=== PATIENT | female | born 1975 | race Caucasian/White ===

== ENCOUNTER 2019-01-17 09:54 | Emergency (ER) | payer OTHER, SELFPAY ==
[2019-01-17 10:04] VITALS: BP 135/93; PULSE 99; RESP 20; TEMP 36.7; O2SAT 98
--- NOTE | 2019-01-17 10:17 | ED.URI ---
HPI - URI/Sore Throat General Chief Complaint: Upper Respiratory Symptoms Stated Complaint: Coughing, fever, aching Time Seen by Provider: 01/17/19 10:17 Source: patient Mode of arrival: ambulatory Limitations: no limitations History of Present Illness HPI Narrative: Patient is a 43-year-old female. She is a smoker. She is here for 3-4 days of a dry cough. No fevers. Has a nonproductive cough. Has no underlying lung pathology prior to this. Has not tried anything for symptoms prior to arrival. Does have little bit of sore throat but she attributes this to the coughing. She states she is here today because last night she had trouble sleeping secondary to the cough Related Data Home Medications Medication Instructions Recorded Confirmed [FAT PILL] #0 04/30/16 Previous Rx's Medication Instructions Recorded naproxen [Naprosyn] 500 mg PO BID #60 tab 04/30/16 prednisone 20 mg PO SEE INSTRUCTIONS #15 tab 04/30/16 sulfamethoxazole-trimethoprim 1 tab PO BID #12 tab 10/01/17 benzonatate [Tessalon Perles] 100 mg PO BID-TID PRN #20 cap 01/17/19 loratadine [Claritin] 10 mg PO DAILY PRN #30 tab 01/17/19 Allergies Allergy/AdvReac Type Severity Reaction Status Date / Time venom-honey bee Allergy Severe Unverified 12/22/17 12:00 [bee venom (honey bee)] amoxicillin Allergy Unknown Unverified 12/22/17 12:00 codeine Allergy Unknown Unverified 12/22/17 12:00 Review of Systems Constitutional Denies fever(s) and Denies headache(s) ENT Ears, Nose, Mouth, and Throat: Denies vertigo, Denies dizziness, Denies headache(s) and Reports sore throat Cardiovascular Denies chest pain, Denies edema, Denies palpitations and Denies dyspnea Respiratory Reports cough and Denies dyspnea Gastrointestinal Gastrointestinal: Denies abdominal pain, Denies nausea and Denies vomiting Musculoskeletal Denies myalgias and Denies arthralgias Integumentary/Breasts Denies rash Neurologic Denies vertigo, Denies dizziness and Denies headache(s) Endocrine Denies palpitations Hematologic/Lymphatic Denies easy bleeding and Denies easy bruising [facility] Medical History Healthy adult (Acute) Social History Smoking Status: Current every day smoker Social History Smoking Status: Current every day smoker Exam Initial Vital Signs Initial Vital Signs: Vital Signs Temperature 98.0 F 01/17/19 10:04 Pulse Rate 99 H 01/17/19 10:04 Respiratory Rate 20 01/17/19 10:04 Blood Pressure 135/93 H 01/17/19 10:04 Pulse Oximetry 98 01/17/19 10:04 Const General: cooperative, healthy appearing, comfortable, well developed, well groomed and No acute distress Orientation: alert, awake and oriented x3 HENMT Head: normal to inspection Ears: hearing grossly normal bilaterally and TM's normal bilaterally Nose: external nose normal Face and sinus: normal facial exam Mouth: oral mucosae normal Throat: posterior oropharynx normal Resp Effort & Inspection: normal respiratory effort Auscultation: clear to auscultation bilaterally Cardio Rate: regular rate Rhythm: regular rhythm Pulses: radial pulses present Skin Lesions: no lesions Rashes: no rashes Neuro General: alert, awake and oriented x3 Cognition: normal cognition Speech: speech normal Extrem General: normal to inspection and capillary refill normal Psych Appearance: grossly normal and well kempt Course Vital Signs - 8 hr 01/17/19 10:04 Temperature 98.0 F Pulse Rate 99 H Respiratory Rate 20 Blood Pressure 135/93 H Pulse Oximetry 98 MDM - URI/Sore Throat MDM Narrative Medical decision making narrative: Patient has a clear lung exam. The rest of her throat and ear exam is unremarkable as well. No indication for antibiotics. Will send home with a prescription for Claritin and Tessalon Perles. She was given expectations that these medications may not take her symptoms completely away. She was instructed to follow up with her primary doctor. She expressed understanding and agreement plan. Discharge Plan Departure Patient Disposition: Home Clinical Impression: Cough Instructions: Cough (Alternative Therapy), Cough Activity Restrictions/Additional Instructions: Take the medications that you were given a prescription for today as directed. Contact your primary care doctor for a follow-up. Return to the emergency department for any new symptoms Prescriptions: New benzonatate [Tessalon Perles] 100 mg capsule 100 mg PO BID-TID PRN (Reason: cough) Qty: 20 RF: 0 loratadine [Claritin] 10 mg tablet 10 mg PO DAILY PRN (Reason: allergy symptoms) Qty: 30 RF: 0 No Action [FAT PILL] Qty: 0 RF: 0 prednisone 20 MG tablet 20 mg PO SEE INSTRUCTIONS Qty: 15 RF: 0 naproxen [Naprosyn] 500 MG tablet 500 mg PO BID Qty: 60 RF: 0 sulfamethoxazole-trimethoprim 800 MG/160 MG tablet 1 tab PO BID Qty: 12 RF: 0
[2019-01-17 11:07] VITALS: BP 123/72; PULSE 91; RESP 15; O2SAT 99
== END 2019-01-17 11:08 | disposition home or self-care (01) ==
PROVIDERS: Emergency Provider Emergency Medicine
DX: R05 Cough (principal)
CPT/HCPCS: 99282; 99283

== ENCOUNTER 2021-10-27 14:27 | Emergency (ER) | payer OTHER, MEDICAID, SELFPAY ==
[2021-10-27] VITALS (15 sets, daily range): BP systolic 104–155; BP diastolic 60–86; PULSE 64–89; RESP 14–43; TEMP 36.4; O2SAT 97–99; BMI 34.0
--- NOTE | 2021-10-27 14:51 | DI.RAD.S_ITS ---
PROCEDURE: XR CHEST 1V INDICATIONS: chest pain TECHNIQUE: One view of the chest was acquired. COMPARISON: None. FINDINGS: Surgical changes and devices: Surgical clips noted in the thyroid fossa Lungs and pleura: Lungs are clear. No pleural effusions or pneumothorax. Mediastinum: Mediastinal contours appear normal. Heart size is normal. Bones and chest wall: No suspicious bony lesions. Overlying soft tissues appear unremarkable. IMPRESSION: No acute cardiopulmonary findings Approved by: Stoney Hernandez M.D. on 10/27/2021 at 14:57
[2021-10-27 15:25] LABS: Add Manual Diff / Slide Review NO; Basophils Absolute Auto 100 /uL (0-100); Basophils Percent Auto 0.9 % (0-2); Eosinophils Absolute Auto 100 /uL (0-450); Hematocrit 40.8 % (36-46); Hemoglobin 13.7 g/dL (12.0-16.0); Lymphocytes Absolute Auto 3600 /uL (1100-4500); Lymphocytes Percent Auto 43.4 % (25-40); Mean Corpuscular HGB Conc 33.5 % (30-36); Mean Corpuscular Hemoglobin 29.8 PG (26-34); Mean Corpuscular Volume 89.1 fL (80-100); Monocytes Absolute Auto 600 /uL (0-900); Monocytes Percent Auto 6.7 % (3-14); Neutrophils Absolute Auto 4000 /uL (1500-7000); Platelet Count 270 X10^3/uL (150-400); Red Blood Cell Count 4.58 X10^6/uL (4.0-5.2); Red Cell Distribution Width 13.4 % (11.6-14.8); White Blood Cell Count 8.2 X10^3/uL (4.5-11.0)
[2021-10-27 15:26] LABS: Alanine Aminotransferase 33 IU/L (<35); Albumin 4.2 g/dL (3.5-5.0); Albumin Globulin Ratio 1.4 (1.0-2.8); Alkaline Phosphatase 66 U/L (38-126); Aspartate Aminotransferase 31 IU/L (14-36); BUN Creatinine Ratio 21.3 (6-22); Bilirubin Total 0.4 mg/dL (0.2-1.3); Blood Urea Nitrogen 16 mg/dL (7-17); Calcium 9.4 mg/dL (8.4-10.2); Carbon Dioxide 24 mmol/L (22-32); Chloride 110 mmol/L (98-107); Creatine Kinase 77 U/L (30-135); Estimated Glomerular Filt Rate > 60.0 mL/min (>60); Glucose 109 mg/dL (70-100); HEMOLYSIS < 15 (0-50); Lipase 122 U/L (23-300); Magnesium 1.8 mg/dL (1.6-2.3); Potassium 3.9 mmol/L (3.4-5.1); Sodium 138 mmol/L (137-145); Total Protein 7.2 g/dL (6.3-8.2)
[2021-10-27 15:36] LABS: Troponin I < 0.012 ng/mL (0.01-0.034)
--- NOTE | 2021-10-27 18:28 | ED.CHESTPAIN ---
HPI - Chest Pain General Chief Complaint: Chest Pain Stated Complaint: Left Sided Shoulder Pain/SOB/Chest Pain Time Seen by Provider: 10/27/21 18:23 Source: patient Mode of arrival: Ambulatory Limitations: no limitations Limitations: no limitations History of Present Illness HPI narrative: This is a 45-year-old female comes emergency department with complaint of left-sided chest pain that she woke up at this morning. She states she turned and took a big breath and had immediate increase in pain. It has been constant we throughout the day but increasing. If she has very still and breathes very shallow and does not twist the wrong way she does not have pain. She describes as being behind her left breast and radiating towards her back. Pleuritic. She has not had similar in the past. She denies any cold, no fevers or chills. No cold cough or congestion. She has had nausea but no vomiting. No diarrhea constipation or rash. Patient has had a prior thyroidectomy, she is on antidepressant, levothyroxine and Xanax as needed as well as Adderall. She is not anticoagulated. She has a history of ovarian cancer in 2003 with a total hysterectomy appy in several lymph nodes removed. She had a carotid dissection at age 23 and was on Coumadin for 2 years but was stopped by her physicians. She smokes tobacco daily, no alcohol, occasional THC but no other illicit. Related Data Home Medications Medication Instructions Recorded Confirmed [FAT PILL] #0 04/30/16 dextroamphetamine-amphetamine 10 01/17/19 mg tablet levothyroxine 175 mcg tablet 175 mcg PO DAILY 01/17/19 01/17/19 Previous Rx's Medication Instructions Recorded naproxen 500 mg tablet (Naprosyn) 500 mg PO BID #60 tab 04/30/16 prednisone 20 mg tablet 20 mg PO SEE INSTRUCTIONS #15 tab 04/30/16 sulfamethoxazole 800 1 tab PO BID #12 tab 10/01/17 mg-trimethoprim 160 mg tablet benzonatate 100 mg capsule 100 mg PO BID-TID PRN #20 cap 01/17/19 (Tessalon Perles) loratadine 10 mg tablet (Claritin) 10 mg PO DAILY PRN #30 tab 01/17/19 ibuprofen 800 mg tablet 800 mg PO Q8H PRN #21 tab 10/28/21 methylprednisolone 4 mg tablets in See Rx Instructions .ROUTE 10/28/21 a dose pack (Medrol (Ryan)) .COMPLEX #21 ea Allergies Allergy/AdvReac Type Severity Reaction Status Date / Time amoxicillin Allergy Unknown Verified 10/27/21 18:55 codeine Allergy Unknown Verified 10/27/21 18:55 venom-honey bee Allergy Unknown Verified 10/27/21 18:55 [bee venom (honey bee)] Review of Systems Review of Systems ROS Unobtainable: All systems reviewed & are unremarkable except as noted in HPI and below Patient History Medical History (Updated 10/28/21 @ 14:48 by Daquan Baze PA-C) Healthy adult Social History Smoking Status: Current every day smoker Smoking Status: Current every day smoker alcohol intake frequency: 0-2 drinks per day Substance Use Type: marijuana Exam Narrative Exam Narrative: GENERAL: Alert and oriented x three, female in mild distress. HEENT: Head normocephalic, atraumatic, EOMI, pupils reactive, face symmetric, moist mucous membranes NECK: Supple, full range of motion CARDIOVASCULAR: Regular rate and rhythm without murmurs, rubs or gallops. RESPIRATORY: Breath sounds equal bilaterally, no wheezes rales or rhonchi. No tachypnea. Speaks in full sentences. ABDOMEN: Soft, left upper quadrant tenderness.. Normoactive bowel sounds all 4 quadrants. No guarding or rebound, rigidity, no mass : No CVA tenderness EXTREMITIES: Normal range of motion, no edema. Neurovascularly intact. NEUROLOGICAL: Cranial nerves II through XII grossly intact. Moving all extremities SKIN: Warm, dry, no petechiae, no rashes or lesions. Initial Vital Signs Initial Vital Signs: Vital Signs Temperature 97.6 F 10/27/21 14:47 Pulse Rate 89 10/27/21 14:47 Respiratory Rate 20 10/27/21 14:47 Blood Pressure 130/86 10/27/21 14:47 Pulse Oximetry 97 10/27/21 14:47 Scores HEART Score Heart Score history: Slightly Suspicious Heart Score EKG: Significant ST depression (T wave inversion) Heart Score Age: 45-64 years old Heart Score risk factors: No known risk factors Heart Score troponin: < or = to normal limit Heart Score Total: 3 PERC Score Age greater than or equal to 50 years: No Heart rate greater than or equal to 100 bpm: No Room Air O2 Sat less than 95%: No Unilateral leg swelling: No Recent trauma or surgery: No Hemoptysis: No Prior PE or DVT: No Hormone Use: No Total PERC Score: 0 Course Orders Ordered: Discontinued Medications Ketorolac Tromethamine (Ketorolac 30 Mg/Ml Vial) 15 mg IV NOW ONE Stop: 10/27/21 20:15 Last Admin: 10/27/21 20:20 Dose: 15 mg Documented by: NINA Morphine Sulfate (Morphine 4 Mg/Ml Inj) 4 mg IV NOW ONE Stop: 10/27/21 18:40 Last Admin: 10/27/21 18:54 Dose: 4 mg Documented by: MAURICIO Vital Signs Vital signs: Vital Signs - 8 hr 10/27/21 14:47 10/27/21 16:27 10/27/21 16:30 Temperature 97.6 F Pulse Rate 89 75 70 Respiratory Rate 20 24 17 Blood Pressure 130/86 Pulse Oximetry 97 98 98 10/27/21 16:31 10/27/21 17:00 10/27/21 17:30 Temperature Pulse Rate 68 64 65 Respiratory Rate 14 43 H 22 Blood Pressure 112/61 104/60 Pulse Oximetry 98 99 99 10/27/21 17:31 10/27/21 18:00 10/27/21 18:30 Temperature Pulse Rate 64 67 76 Respiratory Rate 16 34 H 37 H Blood Pressure 125/75 124/75 Pulse Oximetry 99 97 97 10/27/21 18:31 Temperature Pulse Rate 78 Respiratory Rate 37 H Blood Pressure 141/78 H Pulse Oximetry 98 MDM - Chest Pain Lab Data Result diagrams: 10/27/21 15:02 10/27/21 15:02 Labs: Lab Results 10/27/21 10/27/21 10/27/21 Range/Units 15:02 15:02 15:02 WBC 8.2 (4.5-11.0) X10^3/uL RBC 4.58 (4.0-5.2) X10^6/uL Hgb 13.7 (12.0-16.0) g/dL Hct 40.8 (36-46) % MCV 89.1 (80-100) fL MCH 29.8 (26-34) PG MCHC 33.5 (30-36) % RDW 13.4 (11.6-14.8) % Plt Count 270 (150-400) X10^3/uL Neut % (Auto) 48.0 L (50-75) % Lymph % (Auto) 43.4 H (25-40) % Gillespie % (Auto) 6.7 (3-14) % Eos % (Auto) 1.0 L (2-4) % Baso % (Auto) 0.9 (0-2) % Neut # (Auto) 4000 (7804-6630) /uL Lymph # (Auto) 3600 (0177-0586) /uL Gillespie # (Auto) 600 (0-900) /uL Eos # (Auto) 100 (0-450) /uL Baso # (Auto) 100 (0-100) /uL D-Dimer 333 H (<230) ng/mL Sodium 138 (137-145) mmol/L Potassium 3.9 (3.4-5.1) mmol/L Chloride 110 H (98-107) mmol/L Carbon Dioxide 24 (22-32) mmol/L BUN 16 (7-17) mg/dL Creatinine 0.75 (0.52-1.04) mg/dL Estimated GFR > 60.0 (>60) mL/min BUN/Creatinine Ratio 21.3 (6-22) Glucose 109 H (70-100) mg/dL Calcium 9.4 (8.4-10.2) mg/dL Magnesium 1.8 (1.6-2.3) mg/dL Total Bilirubin 0.4 (0.2-1.3) mg/dL AST 31 (14-36) IU/L ALT 33 (<35) IU/L Alkaline Phosphatase 66 (38-126) U/L Total Creatine Kinase 77 (30-135) U/L CK-MB (CK-2) TNP CK-MB (CK-2) Rel Index TNP Troponin I < 0.012 (0.01-0.034) ng/mL NT-Pro-B Natriuret Pep (<125) pg/mL Total Protein 7.2 (6.3-8.2) g/dL Albumin 4.2 (3.5-5.0) g/dL Globulin 3.0 (1.7-4.1) g/dL Albumin/Globulin Ratio 1.4 (1.0-2.8) Lipase 122 (23-300) U/L SARS-CoV-2 (PCR) (Negative) 10/27/21 10/27/21 Range/Units 18:27 18:50 WBC (4.5-11.0) X10^3/uL RBC (4.0-5.2) X10^6/uL Hgb (12.0-16.0) g/dL Hct (36-46) % MCV (80-100) fL MCH (26-34) PG MCHC (30-36) % RDW (11.6-14.8) % Plt Count (150-400) X10^3/uL Neut % (Auto) (50-75) % Lymph % (Auto) (25-40) % Gillespie % (Auto) (3-14) % Eos % (Auto) (2-4) % Baso % (Auto) (0-2) % Neut # (Auto) (4711-7952) /uL Lymph # (Auto) (3785-1438) /uL Gillespie # (Auto) (0-900) /uL Eos # (Auto) (0-450) /uL Baso # (Auto) (0-100) /uL D-Dimer (<230) ng/mL Sodium (137-145) mmol/L Potassium (3.4-5.1) mmol/L Chloride (98-107) mmol/L Carbon Dioxide (22-32) mmol/L BUN (7-17) mg/dL Creatinine (0.52-1.04) mg/dL Estimated GFR (>60) mL/min BUN/Creatinine Ratio (6-22) Glucose (70-100) mg/dL Calcium (8.4-10.2) mg/dL Magnesium (1.6-2.3) mg/dL Total Bilirubin (0.2-1.3) mg/dL AST (14-36) IU/L ALT (<35) IU/L Alkaline Phosphatase (38-126) U/L Total Creatine Kinase (30-135) U/L CK-MB (CK-2) CK-MB (CK-2) Rel Index Troponin I < 0.012 (0.01-0.034) ng/mL NT-Pro-B Natriuret Pep 86 (<125) pg/mL Total Protein (6.3-8.2) g/dL Albumin (3.5-5.0) g/dL Globulin (1.7-4.1) g/dL Albumin/Globulin Ratio (1.0-2.8) Lipase (23-300) U/L SARS-CoV-2 (PCR) Negative (Negative) Imaging Data Chest x-ray: Radiologist's Impression: Launch?[address] [address] XRay Report Signed Patient: Whitney Coelho MR#: [id number] : 1975 Acct:[id number] Age/Sex: 45 / F Date of Service: 10/27/21 Loc: ED Accession Number: [id number] ?? Procedure: XR chest 1V Ordering Provider: Ifeoma Andersen D.O. PROCEDURE:? XR CHEST 1V ? INDICATIONS:? chest pain ? TECHNIQUE:? One view of the chest was acquired.? ? COMPARISON:? None. ? FINDINGS:? ? Surgical changes and devices:? Surgical clips noted in the thyroid fossa ? Lungs and pleura:? Lungs are clear.? No pleural effusions or pneumothorax.? ? Mediastinum:? Mediastinal contours appear normal.? Heart size is normal.? ? Bones and chest wall:? No suspicious bony lesions.? Overlying soft tissues appear unremarkable.? ? IMPRESSION:? ? No acute cardiopulmonary findings ? ? ? Approved by: Stoney Hernandez M.D. on 10/27/2021 at 14:57? CTA chest/abd/pelvis: Radiologist's Impression: Launch?[address] [address] [address] Scan Report Signed Patient: Whitney Coelho MR#: [id number] : 1975 Acct:[id number] Age/Sex: 45 / F Date of Service: 10/27/21 Loc: ED Accession Number: [id number] ?? Procedure: CT angio chest abdomen pelvis Ordering Provider: Jerri Marte D.O. PROCEDURE:? CT ANGIO CHEST ABDOMEN PELVIS ? INDICATIONS:? left chest/abd pain, hx carotid dissection ? TECHNIQUE:? Precontrast 5 mm thick sections acquired from the lung apices to the iliac crests.? After the administration of intravenous contrast, 2.5 mm thick sections again acquired from the lung apices to the iliac crests.? Maximum intensity projection (MIP) oblique sagittal and coronal reformats were then acquired.? For radiation dose reduction, the following was used:? automated exposure control.? ? COMPARISON:? None. ? FINDINGS:? Image quality:? Excellent.? ? AORTA:? Normal caliber thoracic and abdominal aorta.? No dissection or other significant abnormality. ? ? CHEST:? Lungs and pleura:? No acute airspace opacities.? No pleural effusions or pneumothorax.? Central and peripheral airways are patent and normal in caliber.? ? Mediastinum:? Heart size is normal.? No pericardial effusion.? No mediastinal or hilar adenopathy by size criteria.? Central pulmonary arteries are normal in size.? Esophagus is normal in caliber.? No hiatal hernias.? ? Bones and chest wall:? No axillary adenopathy by size criteria.? No suspicious bony lesions.? No vertebral body compression fractures.? ? ? ABDOMEN:? ? ? Solid organs:? Liver is normal in size and enhancement.? Gallbladder normal..? Biliary system is non dilated.? Pancreas enhances normally.? Spleen is normal in size and enhancement.? No adrenal nodules.? Both kidneys are normal in size and enhancement, without hydronephrosis.? ? Peritoneum and bowel:? No free fluid or air.? Bowel loops are normal in caliber and wall thickness.? ? Nodes and vessels:? No retroperitoneal or mesenteric adenopathy by size criteria.? Inferior vena cava is normal in morphology.? ? Miscellaneous:? No ventral hernias.? ? ? PELVIS:? Genitourinary:? Bladder wall thickness is normal.? ? Miscellaneous:? No inguinal hernias or adenopathy.? No ventral hernias.? ? Bones:? No suspicious bony lesions.? No vertebral body compression fractures.? ? ? IMPRESSION:? Normal study. ? ? Dictated by: Micheal Wallace M.D. on 10/27/2021 at 19:37 ? ? Approved by: Micheal Wallace M.D. on 10/27/2021 at 19:39?? ECG Data Attestation: I personally reviewed and interpreted this ECG as follows: Prior ECG tracings: not available for review Interpretation: Sinus rhythm rate 84 TX 148 QRS [address]TC [address] elevation. T-wave inversion in V1 through V3. Q-wave in lead 3 but not appreciated in 2 or AVF. EKG 2. Shows persistent T-wave inversion in V1 through V3. Q-wave in 3 but not appreciated in 2 and AVF with no other elevation noted. Similar to a prior from earlier today. MDM Narrative Medical decision making narrative: This is a 45-year-old female comes emergency department with complaint of left-sided chest pain. Patient states worse with movement it is pleuritic. She has EKG changes but no comparison. Troponin x2 is negative with no dynamic changes on EKGs, COVID swab is negative with no other acute lab changes and CT of the chest abdomen pelvis angio was obtained as patient has history of prior carotid dissection as well as remote history of ovarian cancer 20 years ago. This does not show any acute changes. Suspect with patient movement it may be more musculoskeletal and patient was discharged home. Discharge Plan Departure Patient Disposition: Home Clinical Impression: Left-sided chest pain Instructions: DI for Atypical Chest Pain Activity Restrictions/Additional Instructions: Follow-up with your physician recheck at your appointment tomorrow. You may take ibuprofen up to 800 mg every 8 hours and/or Tylenol up to a 1000 mg every 8 hours. Please return if you are having worsening symptoms, lightheadedness or passing out, worsening chest pain, shortness of breath, persistent vomiting, new swelling of your extremities or other new or concerning symptoms. Prescriptions: No Action [FAT PILL] Qty: 0 0RF prednisone 20 MG tablet 20 mg PO SEE INSTRUCTIONS Qty: 15 0RF naproxen [Naprosyn] 500 MG tablet 500 mg PO BID Qty: 60 0RF sulfamethoxazole-trimethoprim 800 MG/160 MG tablet 1 tab PO BID Qty: 12 0RF methylprednisolone [Medrol (Ryan)] 4 mg tablets,dose pack See Rx Instructions .ROUTE .COMPLEX Qty: 21 0RF Rx Instructions: orally per package directions ibuprofen 800 mg tablet 800 mg PO Q8H PRN (Reason: pain) Qty: 21 0RF benzonatate [Tessalon Perles] 100 mg capsule 100 mg PO BID-TID PRN (Reason: cough) Qty: 20 0RF loratadine [Claritin] 10 mg tablet 10 mg PO DAILY PRN (Reason: allergy symptoms) Qty: 30 0RF levothyroxine [Synthroid] 175 mcg tablet 175 mcg PO DAILY 0RF dextroamphetamine-amphetamine 10 mg tablet 0RF
[2021-10-27] MEDS: MORPHINE 4 MG/ML INJ IV (18:54)
[2021-10-27 18:55] LABS: D Dimer 333 ng/mL (<230)
[2021-10-27 18:59] LABS: NT-proBNP (BNP-Adult 18+) 86 pg/mL (<125); Troponin I < 0.012 ng/mL (0.01-0.034)
--- NOTE | 2021-10-27 19:02 | DI.CT.S_ITS ---
PROCEDURE: CT ANGIO CHEST ABDOMEN PELVIS INDICATIONS: left chest/abd pain, hx carotid dissection TECHNIQUE: Precontrast 5 mm thick sections acquired from the lung apices to the iliac crests. After the administration of intravenous contrast, 2.5 mm thick sections again acquired from the lung apices to the iliac crests. Maximum intensity projection (MIP) oblique sagittal and coronal reformats were then acquired. For radiation dose reduction, the following was used: automated exposure control. COMPARISON: None. FINDINGS: Image quality: Excellent. AORTA: Normal caliber thoracic and abdominal aorta. No dissection or other significant abnormality. CHEST: Lungs and pleura: No acute airspace opacities. No pleural effusions or pneumothorax. Central and peripheral airways are patent and normal in caliber. Mediastinum: Heart size is normal. No pericardial effusion. No mediastinal or hilar adenopathy by size criteria. Central pulmonary arteries are normal in size. Esophagus is normal in caliber. No hiatal hernias. Bones and chest wall: No axillary adenopathy by size criteria. No suspicious bony lesions. No vertebral body compression fractures. ABDOMEN: Solid organs: Liver is normal in size and enhancement. Gallbladder normal.. Biliary system is non dilated. Pancreas enhances normally. Spleen is normal in size and enhancement. No adrenal nodules. Both kidneys are normal in size and enhancement, without hydronephrosis. Peritoneum and bowel: No free fluid or air. Bowel loops are normal in caliber and wall thickness. Nodes and vessels: No retroperitoneal or mesenteric adenopathy by size criteria. Inferior vena cava is normal in morphology. Miscellaneous: No ventral hernias. PELVIS: Genitourinary: Bladder wall thickness is normal. Miscellaneous: No inguinal hernias or adenopathy. No ventral hernias. Bones: No suspicious bony lesions. No vertebral body compression fractures. IMPRESSION: Normal study. Dictated by: Micheal Wallace M.D. on 10/27/2021 at 19:37 Approved by: Micheal Wallace M.D. on 10/27/2021 at 19:39
[2021-10-27 19:13] LABS: COVID19 -Nasal RAPID Negative (Negative)
[2021-10-27] MEDS: KETOROLAC 30 MG/ML VIAL 15 MG IV (20:20)
== END 2021-10-27 20:32 | disposition home or self-care (01) ==
PROVIDERS: Emergency Medicine; Emergency Provider Emergency Medicine
DX: R07.9 Chest pain, unspecified (principal); F17.200 Nicotine dependence, unspecified, uncomplicated; Z88.5 Allergy status to narcotic agent; Z20.822 Contact with and (suspected) exposure to COVID-19
CPT/HCPCS: 36415; 71045; 71275; 74174; 80053; 82550; 83690; 83735; 83880; 84484; 85025; 85379; 87635; 93005; 93010; 96374; 96375; 99284; C9803; J1885; J2270; Q9967

== ENCOUNTER 2021-10-28 13:36 | Emergency (ER) | payer OTHER, MEDICAID, SELFPAY ==
[2021-10-28 13:38] VITALS: BP 135/97; PULSE 93; RESP 24; TEMP 36.4; O2SAT 99
--- NOTE | 2021-10-28 13:51 | DI.RAD.S_ITS ---
PROCEDURE: XR CHEST 1V INDICATIONS: chest pain TECHNIQUE: One view of the chest was acquired. COMPARISON: [facility], CR, XR CHEST 1V, 10/27/2021, 14:57. FINDINGS: Surgical changes and devices: None. Lungs and pleura: Lungs are clear. No pleural effusions or pneumothorax. Mediastinum: Mediastinal contours appear normal. Heart size is normal. Bones and chest wall: No suspicious bony lesions. Overlying soft tissues appear unremarkable. IMPRESSION: No acute process. Dictated by: James Fenton M.D. on 10/28/2021 at 14:09 Approved by: James Fenton M.D. on 10/28/2021 at 14:09
[2021-10-28 14:00] LABS: Add Manual Diff / Slide Review NO; Basophils Absolute Auto 100 /uL (0-100); Basophils Percent Auto 1.1 % (0-2); Eosinophils Absolute Auto 100 /uL (0-450); Hematocrit 39.5 % (36-46); Hemoglobin 13.6 g/dL (12.0-16.0); Lymphocytes Absolute Auto 4600 /uL (1100-4500); Mean Corpuscular HGB Conc 34.5 % (30-36); Mean Corpuscular Hemoglobin 30.4 PG (26-34); Mean Corpuscular Volume 88.1 fL (80-100); Monocytes Absolute Auto 700 /uL (0-900); Monocytes Percent Auto 6.9 % (3-14); Neutrophils Absolute Auto 4300 /uL (1500-7000); Platelet Count 256 X10^3/uL (150-400); Red Blood Cell Count 4.49 X10^6/uL (4.0-5.2); White Blood Cell Count 9.8 X10^3/uL (4.5-11.0)
[2021-10-28 14:09] LABS: Alanine Aminotransferase 31 IU/L (<35); Albumin 4.2 g/dL (3.5-5.0); Albumin Globulin Ratio 1.5 (1.0-2.8); Alkaline Phosphatase 64 U/L (38-126); Aspartate Aminotransferase 30 IU/L (14-36); Bilirubin Total 0.4 mg/dL (0.2-1.3); Blood Urea Nitrogen 18 mg/dL (7-17); Calcium 9.4 mg/dL (8.4-10.2); Carbon Dioxide 24 mmol/L (22-32); Chloride 110 mmol/L (98-107); Creatine Kinase 66 U/L (30-135); Estimated Glomerular Filt Rate > 60.0 mL/min (>60); Globulin 2.8 g/dL (1.7-4.1); Glucose 104 mg/dL (70-100); HEMOLYSIS < 15 (0-50); Lipase 100 U/L (23-300); Magnesium 1.9 mg/dL (1.6-2.3); Sodium 139 mmol/L (137-145)
[2021-10-28 14:19] LABS: Troponin I < 0.012 ng/mL (0.01-0.034)
--- NOTE | 2021-10-28 14:42 | ED_ITS ---
HPI - Chest Pain <Daquan Baez PA-C - Last Filed: 10/28/21 14:51> General Chief Complaint: Chest Pain Stated Complaint: CHEST PAIN Time Seen by Provider: 10/28/21 14:33 Source: patient Mode of arrival: Ambulatory History of Present Illness HPI narrative: Patient is a 45-year-old female who presents to the ED with chest pain that started a couple days ago. She states that she was here in the ED being evaluated for the same symptoms pain has returned and is difficult to get under control she has a family history of cardiac siblings have been previous MIs at a young age mom and dad also having substantial cardiac history this is a concern to the patient today. Pain increases with movement and with breathing and nothing seems to help. No recent fall or trauma or previous HI no reported fever nausea vomiting diarrhea no history of pneumonia. Patient is described the pain to be left sided along the sternal border sharp in nature rating it 4/10 Related Data Home Medications Medication Instructions Recorded Confirmed [FAT PILL] #0 04/30/16 dextroamphetamine-amphetamine 10 01/17/19 mg tablet levothyroxine 175 mcg tablet 175 mcg PO DAILY 01/17/19 01/17/19 Previous Rx's Medication Instructions Recorded naproxen 500 mg tablet (Naprosyn) 500 mg PO BID #60 tab 04/30/16 prednisone 20 mg tablet 20 mg PO SEE INSTRUCTIONS #15 tab 04/30/16 sulfamethoxazole 800 1 tab PO BID #12 tab 10/01/17 mg-trimethoprim 160 mg tablet benzonatate 100 mg capsule 100 mg PO BID-TID PRN #20 cap 01/17/19 (Tessalon Perles) loratadine 10 mg tablet (Claritin) 10 mg PO DAILY PRN #30 tab 01/17/19 ibuprofen 800 mg tablet 800 mg PO Q8H PRN #21 tab 10/28/21 methylprednisolone 4 mg tablets in See Rx Instructions .ROUTE 10/28/21 a dose pack (Medrol (Ryan)) .COMPLEX #21 ea Allergies Allergy/AdvReac Type Severity Reaction Status Date / Time amoxicillin Allergy Unknown Verified 10/27/21 18:55 codeine Allergy Unknown Verified 10/27/21 18:55 venom-honey bee Allergy Unknown Verified 10/27/21 18:55 [bee venom (honey bee)] Review of Systems <Daquan Baez PA-C - Last Filed: 10/28/21 14:51> Review of Systems ROS Unobtainable: All systems reviewed & are unremarkable except as noted in HPI and below Constitutional Constitutional: Denies chills, Denies fatigue, Denies fever(s), Denies frequent falls, Denies lethargy and Denies weakness Eyes Eyes: Denies change in vision, Denies eye discharge, Denies irritation and Denies loss of vision ENT Ears, Nose, Mouth, and Throat: Denies change in voice, Denies dizziness, Denies neck pain, Denies sore throat and Denies throat swelling Cardiovascular Cardiovascular: Reports chest pain, Denies irregular heart rhythm, Denies lightheadedness, Denies palpitations, Reports dyspnea, Denies dyspnea on exertio n and Denies orthopnea Respiratory Respiratory: Denies cough, Reports dyspnea, Denies dyspnea on exertion and Denies wheezing Gastrointestinal Gastrointestinal: Denies abdominal pain, Denies change in bowel habits, Denies diarrhea, Denies nausea and Denies vomiting Genitourinary Genitourinary: Denies hematuria, Denies flank pain, Denies urinary incontinence and Denies urinary urgency Musculoskeletal Musculoskeletal: Denies back pain, Denies muscle weakness, Denies neck pain, Denies numbness and Denies tingling Integumentary/Breasts Skin/Breast: Denies pruritus, Denies erythema, Denies rash and Denies wounds Neurologic Neurologic: Denies behavioral changes, Denies confusion, Denies dizziness, Denie s frequent falls, Denies loss of vision, Denies numbness, Denies tingling and Denies weakness Psychiatric Psychiatric: Denies anxiety, Denies behavioral changes, Denies confusion, Denies depression, Denies homicidal ideation and Denies suicidal ideation Endocrine Endocrine: Denies fatigue, Denies flushing and Denies palpitations Hematologic/Lymphatic Hematologic/Lymphatic: Denies easy bruising Allergic/Immunologic Allergic/Immunologic: Denies urticaria, Denies throat swelling and Denies wheezing Patient History <Daquan Baez PA-C - Last Filed: 10/28/21 14:51> Medical History (Updated 10/28/21 @ 14:48 by Daquan Baez PA-C) Healthy adult Social History Smoking Status: Current every day smoker Smoking Status: Current every day smoker alcohol intake frequency: 0-2 drinks per day Substance Use Type: marijuana Exam <Daquan Baez PA-C - Last Filed: 10/28/21 14:51> Initial Vital Signs Initial Vital Signs: Vital Signs Temperature 97.5 F L 10/28/21 13:38 Pulse Rate 93 H 10/28/21 13:38 Respiratory Rate 24 10/28/21 13:38 Blood Pressure 135/97 H 10/28/21 13:38 Pulse Oximetry 99 10/28/21 13:38 Const General: cooperative, healthy appearing, in distress and anxious Nutritional Appearance: average body habitus Orientation: Orientation [facility] Head: normal to inspection Ears: hearing grossly normal bilaterally Nose: external nose normal Face and sinus: normal facial exam Eyes General: appearance normal, both eyes and all related structures Pupils: PERRL EOM: EOM intact bilaterally Chest Chest: tenderness (Left sternal border) Resp Effort & Inspection: normal respiratory effort and able to speak in complete sentences Auscultation: clear to auscultation bilaterally Percussion: percussion normal Cardio Palpation: normal PMI Rate: regular rate Rhythm: regular rhythm Heart Sounds: S1 normal and S2 normal GI Inspection: normal to inspection Palpation: soft Percussion: normal to percussion Auscultation: normal bowel sounds <Fede Romero DO - Last Filed: 10/29/21 07:31> Initial Vital Signs Initial Vital Signs: Vital Signs Temperature 97.5 F L 10/28/21 13:38 Pulse Rate 93 H 10/28/21 13:38 Respiratory Rate 24 10/28/21 13:38 Blood Pressure 135/97 H 10/28/21 13:38 Pulse Oximetry 99 10/28/21 13:38 Course <Daquan Baez PA-C - Last Filed: 10/28/21 14:51> Orders Ordered: Discontinued Medications Dexamethasone (Dexamethasone 4 Mg/Ml Vial) 4 mg IV NOW ONE Stop: 10/28/21 14:42 Last Admin: 10/28/21 15:04 Dose: 4 mg Documented by: JESSICA Ketorolac Tromethamine (Ketorolac 30 Mg/Ml Vial) 30 mg IV NOW ONE Stop: 10/28/21 14:42 Last Admin: 10/28/21 15:04 Dose: 30 mg Documented by: JESSICA Vital Signs Vital signs: Vital Signs - 8 hr 02/15/22 13:38 Temperature 97.5 F L Pulse Rate 93 H Respiratory Rate 24 Blood Pressure 135/97 H Pulse Oximetry 99 <Fede Romero DO - Last Filed: 10/29/21 07:31> Orders Ordered: Discontinued Medications Dexamethasone (Dexamethasone 4 Mg/Ml Vial) 4 mg IV NOW ONE Stop: 10/28/21 14:42 Last Admin: 10/28/21 15:04 Dose: 4 mg Documented by: JESSICA Ketorolac Tromethamine (Ketorolac 30 Mg/Ml Vial) 30 mg IV NOW ONE Stop: 10/28/21 14:42 Last Admin: 10/28/21 15:04 Dose: 30 mg Documented by: JESSICA Vital Signs Vital signs: Vital Signs - 8 hr 10/28/21 13:38 Temperature 97.5 F L Pulse Rate 93 H Respiratory Rate 24 Blood Pressure 135/97 H Pulse Oximetry 99 MDM - Chest Pain <Daquan Baez PA-C - Last Filed: 10/28/21 14:51> Differential Diagnosis Differential diagnosis: Likely costochondritis Lab Data Result diagrams: 10/28/21 13:40 10/28/21 13:40 Labs: Lab Results 10/28/21 10/28/21 Range/Units 13:40 13:40 WBC 9.8 (4.5-11.0) X10^3/uL RBC 4.49 (4.0-5.2) X10^6/uL Hgb 13.6 (12.0-16.0) g/dL Hct 39.5 (36-46) % MCV 88.1 (80-100) fL MCH 30.4 (26-34) PG MCHC 34.5 (30-36) % RDW 14.0 (11.6-14.8) % Plt Count 256 (150-400) X10^3/uL Neut % (Auto) 44.0 L (50-75) % Lymph % (Auto) 47.0 H (25-40) % [place] % (Auto) 6.9 (3-14) % Eos % (Auto) 1.0 L (2-4) % Baso % (Auto) 1.1 (0-2) % Neut # (Auto) 4300 (9493-1444) /uL Lymph # (Auto) 4600 H (2221-2950) /uL [place] # (Auto) 700 (0-900) /uL Eos # (Auto) 100 (0-450) /uL Baso # (Auto) 100 (0-100) /uL Sodium 139 (137-145) mmol/L Potassium 4.0 (3.4-5.1) mmol/L Chloride 110 H (98-107) mmol/L Carbon Dioxide 24 (22-32) mmol/L BUN 18 H (7-17) mg/dL Creatinine 0.72 (0.52-1.04) mg/dL Estimated GFR > 60.0 (>60) mL/min BUN/Creatinine Ratio 25.0 H (6-22) Glucose 104 H (70-100) mg/dL Calcium 9.4 (8.4-10.2) mg/dL Magnesium 1.9 (1.6-2.3) mg/dL Total Bilirubin 0.4 (0.2-1.3) mg/dL AST 30 (14-36) IU/L ALT 31 (<35) IU/L Alkaline Phosphatase 64 (38-126) U/L Total Creatine Kinase 66 (30-135) U/L CK-MB (CK-2) TNP CK-MB (CK-2) Rel Index TNP Troponin I < 0.012 (0.01-0.034) ng/mL Total Protein 7.0 (6.3-8.2) g/dL Albumin 4.2 (3.5-5.0) g/dL Globulin 2.8 (1.7-4.1) g/dL Albumin/Globulin Ratio 1.5 (1.0-2.8) Lipase 100 (23-300) U/L ECG Data Attestation: I personally reviewed and interpreted this ECG as follows: (Normal sinus rhythm no evidence of any ST changes) MDM Narrative Medical decision making narrative: Patient was evaluated today for chest pain lab work EKG and chest x-ray all within normal limits patient likely suffers from costochondritis treatment of steroids and anti-inflammatories as recommended patient will be discharged home told to follow-up with PCP. <Fede Romero DO - Last Filed: 10/29/21 07:31> Lab Data Labs: Lab Results 10/28/21 10/28/21 Range/Units 13:40 13:40 WBC 9.8 (4.5-11.0) X10^3/uL RBC 4.49 (4.0-5.2) X10^6/uL Hgb 13.6 (12.0-16.0) g/dL Hct 39.5 (36-46) % MCV 88.1 (80-100) fL MCH 30.4 (26-34) PG MCHC 34.5 (30-36) % RDW 14.0 (11.6-14.8) % Plt Count 256 (150-400) X10^3/uL Neut % (Auto) 44.0 L (50-75) % Lymph % (Auto) 47.0 H (25-40) % [place] % (Auto) 6.9 (3-14) % Eos % (Auto) 1.0 L (2-4) % Baso % (Auto) 1.1 (0-2) % Neut # (Auto) 4300 (1983-9190) /uL Lymph # (Auto) 4600 H (0481-5448) /uL [place] # (Auto) 700 (0-900) /uL Eos # (Auto) 100 (0-450) /uL Baso # (Auto) 100 (0-100) /uL Sodium 139 (137-145) mmol/L Potassium 4.0 (3.4-5.1) mmol/L Chloride 110 H (98-107) mmol/L Carbon Dioxide 24 (22-32) mmol/L BUN 18 H (7-17) mg/dL Creatinine 0.72 (0.52-1.04) mg/dL Estimated GFR > 60.0 (>60) mL/min BUN/Creatinine Ratio 25.0 H (6-22) Glucose 104 H (70-100) mg/dL Calcium 9.4 (8.4-10.2) mg/dL Magnesium 1.9 (1.6-2.3) mg/dL Total Bilirubin 0.4 (0.2-1.3) mg/dL AST 30 (14-36) IU/L ALT 31 (<35) IU/L Alkaline Phosphatase 64 (38-126) U/L Total Creatine Kinase 66 (30-135) U/L CK-MB (CK-2) TNP CK-MB (CK-2) Rel Index TNP Troponin I < 0.012 (0.01-0.034) ng/mL Total Protein 7.0 (6.3-8.2) g/dL Albumin 4.2 (3.5-5.0) g/dL Globulin 2.8 (1.7-4.1) g/dL Albumin/Globulin Ratio 1.5 (1.0-2.8) Lipase 100 (23-300) U/L Discharge Plan Departure Patient Disposition: Home Clinical Impression: Costalchondritis, Chest pain Instructions: DI for Costochondritis, DI for Chest Pain Activity Restrictions/Additional Instructions: You were evaluated today for chest pain which I believe to be a result of costochondritis I sent 2 prescriptions to your pharmacy 1 is a steroid the other 1 is an anti-inflammatory both of which I think will help alleviate her symptoms take the steroid pack as directed and take ibuprofen as needed for pain follow- up with your PCP for any further concerns he can return to the emergency room if you feel you are not getting any better. Prescriptions: New methylprednisolone [Medrol (Ryan)] 4 mg tablets,dose pack See Rx Instructions .ROUTE .COMPLEX Qty: 21 0RF Rx Instructions: orally per package directions ibuprofen 800 mg tablet 800 mg PO Q8H PRN (Reason: pain) Qty: 21 0RF No Action [FAT PILL] Qty: 0 0RF prednisone 20 MG tablet 20 mg PO SEE INSTRUCTIONS Qty: 15 0RF naproxen [Naprosyn] 500 MG tablet 500 mg PO BID Qty: 60 0RF sulfamethoxazole-trimethoprim 800 MG/160 MG tablet 1 tab PO BID Qty: 12 0RF benzonatate [Tessalon Perles] 100 mg capsule 100 mg PO BID-TID PRN (Reason: cough) Qty: 20 0RF loratadine [Claritin] 10 mg tablet 10 mg PO DAILY PRN (Reason: allergy symptoms) Qty: 30 0RF levothyroxine [Synthroid] 175 mcg tablet 175 mcg PO DAILY 0RF dextroamphetamine-amphetamine 10 mg tablet 0RF Stand Alone Forms: Work Release Note <Fede Romero DO - Last Filed: 10/29/21 07:31> Cosign ED Attending Marileeature Attestation: I was immediately available in the department for consultation. This documentation has been reviewed and I agree with assessment and plan. Supervised by Fede Romero DO
[2021-10-28] MEDS: DEXAMETHASONE 4 MG/ML VIAL IV (15:04)
[2021-10-28] MEDS: KETOROLAC 30 MG/ML VIAL IV (15:04)
[2021-10-28 16:09] VITALS: BP 135/79; PULSE 88; RESP 20; O2SAT 100
== END 2021-10-28 16:09 | disposition home or self-care (01) ==
PROVIDERS: Emergency Medicine; Emergency Provider Physician Assistant
DX: M94.0 Chondrocostal junction syndrome [Tietze] (principal); Z82.49 Family history of ischemic heart disease and other diseases of the circulatory system; F17.200 Nicotine dependence, unspecified, uncomplicated
CPT/HCPCS: 36415; 71045; 80053; 82550; 83690; 83735; 84484; 85025; 93005; 93010; 96374; 96375; 99284; J1100; J1885

== ENCOUNTER 2022-03-10 21:14 | Emergency (ER) | payer OTHER, MEDICAID, SELFPAY ==
[2022-03-10 21:30] VITALS: BP 119/65; PULSE 118; RESP 18; TEMP 36.8; O2SAT 97
--- NOTE | 2022-03-10 21:52 | ED.BACK ---
HPI - Back Pain/Injury General Chief Complaint: Back Pain/Injury Stated Complaint: lower left back pain Time Seen by Provider: 03/10/22 21:21 Source: patient History of Present Illness HPI Narrative: 46-year-old female daily smoker, history of PTSD, panic attacks, insomnia presents with family in the chief complaint of some left flank pain that wraps into her abdomen. She states it has been present for the past few days and seems to be worse when she moves and improves with rest. She denies any fever or chills. She has no nausea, vomiting or diarrhea. She denies runny nose, sore throat or cough. She has had no trauma or injury. Related Data Home Medications Medication Instructions Recorded Confirmed [FAT PILL] ##0 04/30/16 dextroamphetamine-amphetamine 10 01/17/19 mg tablet levothyroxine 175 mcg tablet 175 mcg PO DAILY 01/17/19 01/17/19 Previous Rx's Medication Instructions Recorded naproxen 500 mg tablet (Naprosyn) 500 mg PO BID #60 tabs 04/30/16 prednisone 20 mg tablet 20 mg PO SEE INSTRUCTIONS #15 tabs 04/30/16 sulfamethoxazole 800 1 tab PO BID #12 tabs 10/01/17 mg-trimethoprim 160 mg tablet benzonatate 100 mg capsule 100 mg PO BID-TID PRN cough #20 01/17/19 (Tessalon Perles) caps loratadine 10 mg tablet (Claritin) 10 mg PO DAILY PRN allergy 01/17/19 symptoms #30 tabs ibuprofen 800 mg tablet 800 mg PO Q8H PRN pain #21 tabs 10/28/21 methylprednisolone 4 mg tablets in See Rx Instructions PO .COMPLEX 10/28/21 a dose pack (Medrol (Ryan)) #21 ea ciprofloxacin HCl 500 mg tablet 500 mg PO BID #20 tabs 03/11/22 (Cipro) ketorolac 10 mg tablet 10 mg PO Q6H PRN pain #14 tabs 03/11/22 metronidazole 500 mg tablet 500 mg PO Q8H 10 days #30 tabs 03/11/22 Allergies Allergy/AdvReac Type Severity Reaction Status Date / Time amoxicillin Allergy Unknown Verified 10/27/21 18:55 codeine Allergy Unknown Verified 10/27/21 18:55 venom-honey bee Allergy Unknown Verified 10/27/21 18:55 [bee venom (honey bee)] Review of Systems Review of Systems Narrative: GENERAL: Denies chills, fatigue, malaise, fever, sweats. HEENT: Denies sinus pain, ear pain, sore throat, difficulty swallowing, dizziness. RESPIRATORY: Denies dyspnea, cough, wheezing, hemoptysis, sputum. CARDIOVASCULAR: Denies chest pain, palpitations, orthopnea, edema, GASTROINTESTINAL: See HPI : see HPI MUSCULOSKELETAL: denies weakness, joint pain, or bony pain SKIN: Denies rash, skin lesions, or other NEUROLOGIC: Denies weakness, headache, numbness, change in speech, confusion, seizures, incoordination. PSYCHIATRIC: No concerning psychosocial issues. 12 point review of systems is negative except for those stated above Patient History Medical History (Updated 03/11/22 @ 02:27 by Fede Romero DO) Healthy adult Social History Smoking Status: Current every day smoker Smoking Status: Current every day smoker alcohol intake frequency: 0-2 drinks per day Substance Use Type: marijuana Exam Narrative Exam Narrative: GENERAL: [46] year old patient appears stated age. Well-developed patient, in mild distress. HEAD: Atraumatic. Normocephalic. EYES: Pupils equal round and reactive. Extraocular motions intact. No scleral icterus. No injection or drainage. ENT: Nose without bleeding, purulent drainage. Throat without erythema, tonsillar hypertrophy or exudate. Airway patent. NECK: Trachea midline. Non tender CARDIOVASCULAR: Regular rate and rhythm without murmurs, gallops, or rubs. RESPIRATORY: Clear to auscultation. Breath sounds equal bilaterally. No wheezes, rales, or rhonchi. GASTROINTESTINAL: Abdomen soft, left-sided abdominal pain, no guarding or peritoneal signs, bowel sounds present. EXTREMITIES: No edema or joint tenderness. BACK: Nontender without deformity or crepitance. No flank tenderness. NEURO: AOx3. SKIN: No rash or erythema of visible areas Initial Vital Signs Initial Vital Signs: Vital Signs Temperature 98.2 F 03/10/22 21:30 Pulse Rate 118 H 03/10/22 21:30 Respiratory Rate 18 03/10/22 21:30 Blood Pressure 119/65 03/10/22 21:30 Pulse Oximetry 97 03/10/22 21:30 Oxygen Delivery Method 03/10/22 21:30 Course Orders Ordered: ED Orders 03/10/22 22:11 Complete Blood Count AUTO DIFF Stat Comprehensive Metabolic Panel Stat 03/11/22 00:19 CT kidney ureter bladder (KUB) Stat Discontinued Medications Sodium Chloride (Normal Saline 0.9%) 1,000 mls @ 1,000 mls/hr IV BOLUS ONE Stop: 03/10/22 23:39 Last Infusion: 03/11/22 00:43 Dose: 0 mls/hr Documented By: Admin: 03/10/22 22:55 Dose: 1,000 mls/hr Documented By: SB Ketorolac Tromethamine (Ketorolac 30 Mg/Ml Vial) 15 mg IV NOW ONE Stop: 03/10/22 22:41 Last Admin: 03/10/22 22:56 Dose: 15 mg Documented By: LUDY Vital Signs Vital signs: Vital Signs - 8 hr 03/10/22 21:30 03/10/22 21:55 03/10/22 22:03 Temperature 98.2 F Pulse Rate 118 H 109 H 113 H Respiratory Rate 18 18 Blood Pressure 119/65 107/82 Pulse Oximetry 97 97 Oxygen Delivery Method Room Air Room Air 03/10/22 22:38 Temperature Pulse Rate 96 H Respiratory Rate 18 Blood Pressure 105/70 Pulse Oximetry 95 Oxygen Delivery Method Room Air MDM - Back Pain/Injury Lab Data Result diagrams: 03/10/22 22:11 03/10/22 22:11 Labs: Lab Results 03/10/22 03/10/22 Range/Units 22:11 22:11 WBC 9.9 (4.5-11.0) X10^3/uL RBC 4.20 (4.0-5.2) X10^6/uL Hgb 13.0 (12.0-16.0) g/dL Hct 37.9 (36-46) % MCV 90.2 (80-100) fL MCH 31.0 (26-34) PG MCHC 34.4 (30-36) % RDW 14.4 (11.6-14.8) % Plt Count 292 (150-400) X10^3/uL Neut % (Auto) 44.9 L (50-75) % Lymph % (Auto) 45.7 H (25-40) % [place] % (Auto) 7.7 (3-14) % Eos % (Auto) 1.0 L (2-4) % Baso % (Auto) 0.7 (0-2) % Neut # (Auto) 4400 (1688-5635) /uL Lymph # (Auto) 4500 (4175-4815) /uL [place] # (Auto) 800 (0-900) /uL Eos # (Auto) 100 (0-450) /uL Baso # (Auto) 100 (0-100) /uL Sodium 137 (137-145) mmol/L Potassium 4.1 (3.4-5.1) mmol/L Chloride 108 H (98-107) mmol/L Carbon Dioxide 22 (22-32) mmol/L BUN 14 (7-17) mg/dL Creatinine 0.77 (0.52-1.04) mg/dL Estimated GFR > 60 (>60) mL/min BUN/Creatinine Ratio 18.2 (6-22) Glucose 94 (70-100) mg/dL Calcium 8.4 (8.4-10.2) mg/dL Total Bilirubin 0.3 (0.2-1.3) mg/dL AST 22 (14-36) IU/L ALT 14 (<35) IU/L Alkaline Phosphatase 77 (38-126) U/L Total Protein 6.8 (6.3-8.2) g/dL Albumin 4.0 (3.5-5.0) g/dL Globulin 2.8 (1.7-4.1) g/dL Albumin/Globulin Ratio 1.4 (1.0-2.8) Urine Dip Bedside Urine Glucose Negative Bedside Urine Bilirubin - Negative Bedside Urine Ketone - Negative Urine Specific [place] 1.030 Bedside Urine Occult Blood - Negative Bedside Urine pH 6.0 Bedside Urine Protein - Negative Bedside Urine Urobilinogen - Negative Bedside Urine Nitrite - Negative Bedside Urine Leukocytes - Negative Esterase Imaging Data CT scan - abdomen/pelvis: Radiologist's Impression: Whitney Coelho??46??F??1975 ? Allergy/Adv: amoxicillin, codeine, venom-honey bee (More??) Close Abdomen/Pelvis CT (Signed) Cameron Preston - 03/11/22 Chest X-Ray (Signed) James Fenton - 10/28/21 Chest/Abdomen/Pelvis CTA (Signed) Micheal Wallace - 10/27/21 Chest X-Ray (Signed) Stoney Hernandez - 10/27/21 Launch?[place] [address] CT Scan Report Signed Patient: Whitney Coelho MR#: [id number] : 1975 Acct:[id number] Age/Sex: 46 / F Date of Service: 03/11/22 Loc: ED Accession Number: [id number] ?? Procedure: CT kidney ureter bladder (KUB) Ordering Provider: Fede Romero D.O. PROCEDURE:? CT KIDNEY URETER BLADDER (KUB) ? INDICATIONS:? severe L flank ? TECHNIQUE:? Axial sections were acquired from the lung bases to the pubic symphysis.? Coronal and sagittal reformats were performed.? For radiation dose reduction, the following was used: ?automated exposure control, adjustment of mA and/or kV according to patient size.? ? COMPARISON:? [facility], CT, CT ANGIO CHEST ABDOMEN PELVIS, 10/27/2021, 19:05.? [facility], CT, KIDNEY/ URETER/BLADDER, 11/28/2009, 10:39. ? FINDINGS:? Image quality:? Excellent.? ? Lung bases:? There is mild dependent atelectasis.? ? Heart:? Heart is normal in size. ? URINARY: Right Kidney and Ureter: ? No stones or hydronephrosis.? No hydroureter.? ? Left Kidney and Ureter: ? No stones or hydronephrosis.? There is a left extrarenal pelvis.? No hydroureter. ? Bladder:? Normal wall thickness. No stones. ? ? ? ABDOMEN: Liver:? Noncontrast evaluation of the liver demonstrates no discrete? mass. Gallbladder:? Within normal limits without calcified gallstones.? ? Biliary ducts:? No biliary ductal dilatation.? ? Pancreas:? Unremarkable.? ? Spleen:? Normal in size.? ? Adrenal Glands:? No adrenal nodules.? ? ? Stomach and Bowel:? Stomach and small bowel loops are normal in caliber and wall thickness.? No pericecal inflammatory changes to suggest appendicitis.? There is mild segmental wall thickening within the distal descending and sigmoid colon which are nondistended.? Findings may reflect a mild colitis. Peritoneum:? No abnormal intraperitoneal fluid.? No free air.? ? Ventral Wall: ? No hernia.? Abdominal Nodes:? No retroperitoneal or mesenteric adenopathy by size criteria.? Vessels:? Aorta and inferior vena cava are normal in size.? ? PELVIS: Pelvic Organs:? Unremarkable.? ? Pelvic Nodes: No enlarged lymph nodes.? Miscellaneous: No inguinal hernias identified. ? ? ? Bones:? Visualized osseous structures demonstrate no suspicious focal lesions. IMPRESSION:? ? 1. No evidence of nephrolithiasis or obstructive uropathy. ? 2. Mild segmental wall thickening in the distal descending and proximal sigmoid colon may reflect a mild colitis. ? Dictated by: Cameron Preston M.D. on 03/11/2022 at 1:57 ? ? Approved by: Cameron Preston M.D. on 03/11/2022 at 2:01 ? MDM Narrative Medical decision making narrative: Multiple etiologies for patient's symptoms considered include, but not limited to: [Kidney stone versus bowel obstruction versus colitis versus other Patient's symptoms improved over duration of stay with above-stated therapies. History, physical exam, labs, imaging, and response to therapies have been reassuring. Findings and discharge diagnosis discussed with patient/family followed by verbalization of understanding Return precautions discussed with patient/family whom verbalize understanding. Pain has been well controlled and patient is tolerating oral hydration. Discharge Plan Departure Patient Disposition: Home Clinical Impression: Colitis Instructions: DI for Colitis Activity Restrictions/Additional Instructions: *You have been diagnosed with [abdominal and flank pain due to colitis] * As we discussed your history and physical exam as well as labs and imaging are very reassuring. There is no evidence of any severe diagnoses that would require a specific or immediate intervention. *What to do: *Please continue to take your regular medications as directed. [x ] New medication prescriptions sent to your pharmacy: [[facility]] *Please follow up with your primary care provider in 2-3 days, call for an appointment. Let them know you were seen in the Emergency Department and that we ask that you be seen in follow up. We will electronically transmit a record of today's note if your PCP is in our system *Please consider a clear liquid diet for the next 24-48 hours and then slowly advance to regular as tolerated. Also, try to avoid alcohol, nicotine, caffeine, spicy, acidic or fatty foods as this may worsen your symptoms *If you do not have a primary care provider please contact the [facility] Resource line at [phone]. They will ask some questions about your medical history and help get you set up with a doctor in the community. *Return to Emergency Department if you should have any new, worsening or concerning symptoms, such as [fever greater than 101 F, shaking chills, worsening pain, persistent vomiting or other bothersome symptoms] Prescriptions: New ciprofloxacin HCl [Cipro] 500 mg tablet 500 mg PO BID Qty: 20 0RF metronidazole 500 mg tablet 500 mg PO Q8H 10 Days Qty: 30 0RF ketorolac 10 mg tablet 10 mg PO Q6H PRN (Reason: pain) Qty: 14 0RF No Action [FAT PILL] Qty: 0 prednisone 20 MG tablet 20 mg PO SEE INSTRUCTIONS Qty: 15 0RF naproxen [Naprosyn] 500 MG tablet 500 mg PO BID Qty: 60 0RF sulfamethoxazole-trimethoprim 800 MG/160 MG tablet 1 tab PO BID Qty: 12 0RF methylprednisolone [Medrol (Ryna)] 4 mg tablets,dose pack See Rx Instructions .ROUTE .COMPLEX Qty: 21 0RF Rx Instructions: orally per package directions ibuprofen 800 mg tablet 800 mg PO Q8H PRN (Reason: pain) Qty: 21 0RF benzonatate [Tessalon Perles] 100 mg capsule 100 mg PO BID-TID PRN (Reason: cough) Qty: 20 0RF loratadine [Claritin] 10 mg tablet 10 mg PO DAILY PRN (Reason: allergy symptoms) Qty: 30 0RF levothyroxine [Synthroid] 175 mcg tablet 175 mcg PO DAILY dextroamphetamine-amphetamine 10 mg tablet Referrals: Rafael Anne MD [Primary Care Provider] -
[2022-03-10 21:55] VITALS: PULSE 109
[2022-03-10 22:03] VITALS: BP 107/82; PULSE 113; RESP 18; O2SAT 97
--- NOTE | 2022-03-10 22:19 | PC.NURSE ---
Pt reports left lower back pain that wraps around to her anterior side that began this morning. Reports, it hurts to breath. O2 sat 97% on RA, RR 18. Reports 3/10 pain without movement; 10/10 pain with movement. Pt reports taking 30 mg THC/CBG with no improvement.
[2022-03-10 22:38] VITALS: BP 105/70; PULSE 96; RESP 18; O2SAT 95
[2022-03-10 22:48] LABS: Add Manual Diff / Slide Review NO; Basophils Absolute Auto 100 /uL (0-100); Basophils Percent Auto 0.7 % (0-2); Eosinophils Absolute Auto 100 /uL (0-450); Hematocrit 37.9 % (36-46); Lymphocytes Absolute Auto 4500 /uL (1100-4500); Lymphocytes Percent Auto 45.7 % (25-40); Mean Corpuscular HGB Conc 34.4 % (30-36); Mean Corpuscular Volume 90.2 fL (80-100); Monocytes Absolute Auto 800 /uL (0-900); Monocytes Percent Auto 7.7 % (3-14); Neutrophils Absolute Auto 4400 /uL (1500-7000); Neutrophils Percent Auto 44.9 % (50-75); Platelet Count 292 X10^3/uL (150-400); Red Cell Distribution Width 14.4 % (11.6-14.8); White Blood Cell Count 9.9 X10^3/uL (4.5-11.0)
[2022-03-10 22:53] LABS: Alanine Aminotransferase 14 IU/L (<35); Albumin Globulin Ratio 1.4 (1.0-2.8); Alkaline Phosphatase 77 U/L (38-126); Aspartate Aminotransferase 22 IU/L (14-36); BUN Creatinine Ratio 18.2 (6-22); Bilirubin Total 0.3 mg/dL (0.2-1.3); Blood Urea Nitrogen 14 mg/dL (7-17); Calcium 8.4 mg/dL (8.4-10.2); Carbon Dioxide 22 mmol/L (22-32); Chloride 108 mmol/L (98-107); Estimated Glomerular Filt Rate > 60 mL/min (>60); Globulin 2.8 g/dL (1.7-4.1); Glucose 94 mg/dL (70-100); HEMOLYSIS 19 (0-50); Potassium 4.1 mmol/L (3.4-5.1); Sodium 137 mmol/L (137-145); Total Protein 6.8 g/dL (6.3-8.2)
[2022-03-10] MEDS: SODIUM CHLORIDE 0.9% 1,000 ML 1000 ML IV (22:55)
[2022-03-10] MEDS: KETOROLAC 30 MG/ML VIAL 15 MG IV (22:56)
--- NOTE | 2022-03-11 00:19 | DI.CT.S_ITS ---
PROCEDURE: CT KIDNEY URETER BLADDER (KUB) INDICATIONS: severe L flank TECHNIQUE: Axial sections were acquired from the lung bases to the pubic symphysis. Coronal and sagittal reformats were performed. For radiation dose reduction, the following was used: automated exposure control, adjustment of mA and/or kV according to patient size. COMPARISON: [facility], CT, CT ANGIO CHEST ABDOMEN PELVIS, 10/27/2021, 19:05. [facility], CT, KIDNEY/ URETER/BLADDER, 11/28/2009, 10:39. FINDINGS: Image quality: Excellent. Lung bases: There is mild dependent atelectasis. Heart: Heart is normal in size. URINARY: Right Kidney and Ureter: No stones or hydronephrosis. No hydroureter. Left Kidney and Ureter: No stones or hydronephrosis. There is a left extrarenal pelvis. No hydroureter. Bladder: Normal wall thickness. No stones. ABDOMEN: Liver: Noncontrast evaluation of the liver demonstrates no discrete mass. Gallbladder: Within normal limits without calcified gallstones. Biliary ducts: No biliary ductal dilatation. Pancreas: Unremarkable. Spleen: Normal in size. Adrenal Glands: No adrenal nodules. Stomach and Bowel: Stomach and small bowel loops are normal in caliber and wall thickness. No pericecal inflammatory changes to suggest appendicitis. There is mild segmental wall thickening within the distal descending and sigmoid colon which are nondistended. Findings may reflect a mild colitis. Peritoneum: No abnormal intraperitoneal fluid. No free air. Ventral Wall: No hernia. Abdominal Nodes: No retroperitoneal or mesenteric adenopathy by size criteria. Vessels: Aorta and inferior vena cava are normal in size. PELVIS: Pelvic Organs: Unremarkable. Pelvic Nodes: No enlarged lymph nodes. Miscellaneous: No inguinal hernias identified. Bones: Visualized osseous structures demonstrate no suspicious focal lesions. IMPRESSION: 1. No evidence of nephrolithiasis or obstructive uropathy. 2. Mild segmental wall thickening in the distal descending and proximal sigmoid colon may reflect a mild colitis. Dictated by: Cameron Preston M.D. on 03/11/2022 at 1:57 Approved by: Cameron Preston M.D. on 03/11/2022 at 2:01
[2022-03-11] MEDS: ONDANSETRON 4 MG ODT PREPACK 1 BOTTLE MISC (02:43)
[2022-03-11 02:53] VITALS: BP 98/60; PULSE 59; RESP 17; TEMP 36.4; O2SAT 97
== END 2022-03-11 02:56 | disposition home or self-care (01) ==
PROVIDERS: Emergency Provider Emergency Medicine; PCP Family Medicine
DX: K52.9 Noninfective gastroenteritis and colitis, unspecified (principal)
CPT/HCPCS: 36415; 74176; 80053; 81003; 85025; 96361; 96374; 99284; J1885